=== PATIENT | male | born 1945 | race Caucasian/White ===

== ENCOUNTER 2017-11-12 11:38 | Inpatient (IN) | payer OTHER ==
[2017-11-12 14:48] VITALS: BMI 23.6
--- NOTE | 2017-11-12 16:14 | HP ---
CIWA Score - CIWA Score Nausea/Vomitin Muscle Tremors: 3 Anxiety: 4-Mod. Anxious/Guarded Agitation: 3 Paroxysmal Sweats: 3 Orientation: 2-Disoriented Date<2 days Tacttile Disturbances: 0-None Auditory Disturbances: 0-None Visual Disturbances: 0-None Headache: 0-None Present CIWA-Ar Total Score: 17 Admission ROS BHS - HPI Chief Complaint: Withdrawal sx. Allergies/Adverse Reactions: Allergies Allergy/AdvReac Type Severity Reaction Status Date / Time No Known Allergies Allergy Verified 11/12/17 16:02 History of Present Illness: 71 y/o man with a long hx. of alcoholism is admitted for detox. Pt. has been in previous detox, reports > 8 yrs. sober. UDS + for opiate, pt. denies opiate use, admits to smoking marihuana 2-3x/wk Exam Limitations: No Limitations - Ebola screening Have you traveled outside of the country in the last 21 days: No (N) Have you had contact with anyone from an Ebola affected area: No Have you been sick,other than usual withdrawal symptoms: No Do you have a fever: No - Review of Systems Constitutional: Diaphoresis EENT: reports: No Symptoms Reported Respiratory: reports: No Symptoms reported Cardiac: reports: No Symptoms Reported GI: reports: Nausea, Abdominal cramping Musculoskeletal: reports: No Symptoms Reported Integumentary: reports: Sweating Neuro: reports: Tremors Endocrine: reports: No Symptoms Reported Hematology: reports: No Symptoms Reported Psychiatric: reports: No Sypmtoms Reported Other Systems: Reviewed and Negative Patient History - Patient Medical History Hx Anemia: No Hx Asthma: No Hx Chronic Obstructive Pulmonary Disease (COPD): No Hx Cancer: No Hx Cardiac Disorders: No Hx Congestive Heart Failure: No Hx Hypertension: Yes Hx Hypercholesterolemia: Yes Hx Pacemaker: No HX Cerebrovascular Accident: No Hx Seizures: (may be 40 yrs. ago, not sure ) Hx Dementia: No Hx Diabetes: No Hx Gastrointestinal Disorders: Yes Hx Liver Disease: Yes Hx Genitourinary Disorders: No Hx Sexually Transmitted Disorders: No Hx Renal Disease (ESRD): No Hx Thyroid Disease: No Hx Human Immunodeficiency Virus (HIV): No Hx Hepatitis C: Yes ([place]) Hx Depression: Yes Hx Suicide Attempt: No Hx Bipolar Disorder: No Hx Schizophrenia: No - Patient Surgical History Past Surgical History: Yes Hx Cholecystectomy: Yes Other Surgical History: Hemorrhoids - PPD History Previous Implant?: Yes Documented Results: Negative w/o proof PPD to be Administered?: Yes - Smoking Cessation Smoking history: Former smoker (stopped 12 yrs. ago) Have you smoked in the past 12 months: No Initiated information on smoking cessation: No - Substance & Tx. History Hx Alcohol Use: Yes Hx Substance Use: Yes Substance Use Type: Alcohol, Marijuana Hx Substance Use Treatment: Yes (Detox) - Substances Abused Alcohol Route: Oral Frequency: Daily Amount used: Vodka 1 1/2 pint Age of first use: 26 Date of Last Use: 11/12/17 Family Disease History - Family Disease History Family Disease History: Diabetes: Sister (HTN), Heart Disease: Sister, Other: Father (Alcoholism, Cirrhosis) Admission Physical Exam [facility] - Vital Signs Vital Signs: Vital Signs - 24 hr 11/12/17 14:45 Temperature 97.7 F Pulse Rate 93 H Respiratory 18 Rate Blood Pressure 147/79 - Physical General Appearance: Yes: Alcohol on Breath, Tremorous, Irritable, Sweating, Anxious HEENTM: Yes: Within Normal Limits Respiratory: Yes: Chest Non-Tender, Lungs Clear, Normal Breath Sounds Neck: Yes: Supple Breast: Yes: Breast Exam Deferred Cardiology: Yes: Regular Rhythm, Regular Rate, S1, S2 Abdominal: Yes: Normal Bowel Sounds, Non Tender, Flat Genitourinary: Yes: Within Normal Limits Back: Yes: Within Normal Limits Musculoskeletal: Yes: Within Normal Limits Extremities: Yes: Tremors Neurological: Yes: Fully Oriented, Alert Integumentary: Yes: Diaphoresis Lymphatic: Yes: Within Normal Limits - Diagnostic (1) Alcohol dependence with uncomplicated withdrawal Current Visit: Yes Status: Acute (2) HTN (hypertension) Current Visit: Yes Status: Acute Qualifiers: Hypertension type: essential hypertension Qualified Code(s): I10 - Essential (primary) hypertension (3) Hypercholesterolemia Current Visit: Yes Status: Acute Cleared for Admission [facility] - Detox or Rehab [facility] Level of Care: Medically Managed Detox Regimen/Protocol: Librium [facility] Breath Alcohol Content Breath Alcohol Content: 0.211 Urine Drug Screen - Results Drug Screen Negative: No Urine Drug Screen Results: THC-Marijuana, OPI-Opiates, MTD-Methadone, OXY- Oxycodone
[2017-11-12] MEDS ORDERED: MAGNESIUM HYDROX 2400MG/30ML ORAL SUSPENSION 30 ML CUP PO PRN (16:30)
[2017-11-12] MEDS ORDERED: ACETAMINOPHEN 325 MG TABLET (FP) PO PRN (16:30)
[2017-11-12] MEDS ORDERED: MAG HYDROX/AL HYDROX/SIMETH 30 ML UNIT-DOSE CUP PO PRN (16:30)
[2017-11-12] MEDS ORDERED: MENTHOL/PHENOL 1 EACH UD MM PRN (16:30)
[2017-11-12] MEDS ORDERED: LOPERAMIDE HCL 2 MG CAPSULE PO PRN (16:30)
[2017-11-12] MEDS ORDERED: MAGNESIUM CITRATE 300 ML BOTTLE PO PRN (16:30)
[2017-11-12] MEDS ORDERED: IBUPROFEN 400 MG TABLET (FP) PO PRN (16:30)
[2017-11-12] MEDS ORDERED: chlordiazePOXIDE HCL 25 MG CAPSULE PO ONE (16:30)
[2017-11-12] MEDS ORDERED: P-EPHED 60MG/TRIPROLIDI 2.5MG TABLET PO PRN (16:30)
[2017-11-12] MEDS ORDERED: guaiFENesin/D-METHORPHAN HB 10 ML UNIT-DOSE CUPS PO PRN (16:30)
[2017-11-12] MEDS: chlordiazePOXIDE HCL 25 MG CAPSULE PO SCH ×2 (19:39→22:45)
[2017-11-12] MEDS: THIAMINE HCL 100 MG TABLET (FP) PO SCH (22:45)
[2017-11-12] MEDS: TAMSULOSIN HCL 0.4 MG CAP.ER.24H (FP) PO SCH (22:45)
[2017-11-12] MEDS: ATORVASTATIN CA 20 MG TABLET (FP) PO SCH (22:45)
[2017-11-13] MEDS: chlordiazePOXIDE HCL 25 MG CAPSULE PO PRN ×2 (01:43→13:35)
[2017-11-13] MEDS: chlordiazePOXIDE HCL 25 MG CAPSULE PO SCH ×4 (05:25→22:53)
[2017-11-13 10:27] LABS: HEMATOCRIT 36.7 % (35.4-49); HEMOGLOBIN 11.9 GM/dL (11.7-16.9); MCH 28.3 pg (25.7-33.7); MCHC 32.4 g/dl (32.0-35.9); MEAN CELL VOLUME 87.5 fl (80-96); PLATELET COUNT 275 K/MM3 (134-434); RBC 4.19 M/mm3 (4.00-5.60); RDW 13.5 % (11.9-15.9); WHITE BLOOD COUNT 4.2 K/mm3 (4.0-10.0)
[2017-11-13 10:38] LABS: CHLORIDE 104 mmol/L (98-107); POTASSIUM 4.2 mmol/L (3.5-5.1); SODIUM 141 mmol/L (136-145)
[2017-11-13 10:48] LABS: ALBUMIN 3.2 g/dl (3.4-5.0); ALK PHOS 122 U/L (45-117); ANION GAP 7 (8-16); BILIRUBIN,TOTAL 0.6 mg/dL (0.2-1.0); BLOOD UREA NITROGEN 33 mg/dL (7-18); CO2 30 mmol/L (21-32); CREATININE 1.8 mg/dL (0.7-1.3); GLUCOSE,RANDOM 105 mg/dL (74-106); SGOT/AST 63 U/L (15-37); SGPT/ALT 64 U/L (12-78); TOT PROT 6.3 g/dl (6.4-8.2)
--- NOTE | 2017-11-13 10:58 | CONSULT ---
[facility] Psychiatric Consult - Data Date of interview: 11/13/17 Admission source: [facility] [place] Identifying data: Mr Manning is a 71 years old , father of 3 children, retired as a social work case manager credit administrator on [employer], domiciled seeking detox treatment for alcohol Substance Abuse History: Reports history of alcohol use. He started drinking alcohol at age 26, consumes half a pint daily. Last drank on 11/12/17 Medical History: Significant for hypertension, hyperlipidemia, hepatis C, and history of alcohol-related sizure and surgery for hemorrhoids and Ballbladder. Psychiatric History: Reports that after he lost both parents(father when he was 10 & mother the following year) he practically raised himself and early in life started using drug and involved in criminal activities to support his habit. He was arrested multiple times on drug charges and served a total of 10 years in [facility]. Finally, he went to school, obtained an associate, BA and MA in social work. 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 He was diagnosed with Bipolar Disorder and started on Depakote wich he took for only 6 months. Told field underwriter that he believes that he was misdiagnosed and only took medication to satisfy HR requirement. About 1.5 year ago in 2016, he saw a psychiatrist due to marital issues(acknowledges infidelity) and was started on Zoloft. Later on Wellbutrin was added to counteract sexual side- effect (erectile dysfunction) of Zoloft. After 6 months, he stopped taking Zoloft since he was still experiencing sexual side-effects but continued to take Wellbutrin. Most recently, wellbutrin XL 300 mg po daily was prescribed by his primary care physician. Claims he stopped taking medication 2 weks ago. at present, reports feelimg anxious and experiencing difficulty to sleep Physical/Sexual Abuse/Trauma History: Denies history of verbal physical or sexual abuse as well as DV relationship Additional Comment: Reports history of multiple previous arrests including 5 felony convictions on charges of burglary. Reports serving approximately 10 years incarcerated Mental Status Exam - Mental Status Exam Alert and Oriented to: Time, Place, Person Cognitive Function: Fair Patient Appearance: Well Groomed Mood: Anxious Affect: Appropriate Patient Behavior: Cooperative Speech Pattern: Clear Voice Loudness: Normal Thought Process: Intact, Goal Oriented Thought Disorder: Not Present Hallucinations: Denies Suicidal Ideation: Denies Homicidal Ideation: Denies Insight/Judgement: Poor Sleep: Poorly Appetite: Fair Muscle strength/Tone: Normal Gait/Station: Normal Psychiatric Findings - Problem List ([place] 1, 2,3) (1) Impulse control disorder Current Visit: Yes Status: Chronic (2) Bipolar disorder Current Visit: Yes Status: Ruled-out (3) Substance induced mood disorder Current Visit: Yes Status: Acute (4) Substance-induced sleep disorder Current Visit: Yes Status: Acute (5) Alcohol dependence with uncomplicated withdrawal Current Visit: Yes Status: Acute (6) HTN (hypertension) Current Visit: Yes Status: Chronic Qualifiers: Hypertension type: essential hypertension Qualified Code(s): I10 - Essential (primary) hypertension (7) Hypercholesterolemia Current Visit: Yes Status: Chronic (8) Hepatitis C Current Visit: Yes Status: Chronic (9) 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 2) Start Ambien 10 mg po HS prn for insomia. 3) Continue inpatient deroxification
[2017-11-13] MEDS: ATENOLOL 25 MG TABLET (FP) PO SCH (11:07)
[2017-11-13] MEDS: PANTOPRAZOLE 40 MG TABLET (FP) PO SCH (11:07)
[2017-11-13] MEDS: PRENATAL VITAMINS W/ FOLIC ACID TABLET (FP) PO SCH (11:07)
[2017-11-13] MEDS: NIFEdipine E.R 60 MG TABLET (UD) PO SCH (11:07)
--- NOTE | 2017-11-13 11:29 | PN ---
S CIWA - CIWA Score Nausea/Vomitin-Mild Nausea/No Vomiting Muscle Tremors: 4-Moderate,w/Arms Extend Anxiety: 4-Mod. Anxious/Guarded Agitation: 3 Paroxysmal Sweats: 1-Minimal Palms Moist Orientation: 0-Oriented Tacttile Disturbances: 0-None Auditory Disturbances: 0-None Visual Disturbances: 0-None Headache: 0-None Present CIWA-Ar Total Score: 13 BHS Progress Note (SOAP) Subjective: tremor sweat anxiety Objective: 11/13/17 11:25 Vital Signs Temperature 98.2 F 11/13/17 10:23 Pulse Rate 124 H 11/13/17 10:23 Respiratory Rate 18 11/13/17 10:23 Blood Pressure 136/85 11/13/17 10:23 O2 Sat by Pulse Oximetry (%) Laboratory Last Values WBC 4.2 K/mm3 (4.0-10.0) 11/13/17 07:40 RBC 4.19 M/mm3 (4.00-5.60) 11/13/17 07:40 Hgb 11.9 GM/dL (11.7-16.9) 11/13/17 07:40 Hct 36.7 % (35.4-49) 11/13/17 07:40 MCV 87.5 fl (80-96) 11/13/17 07:40 MCH 28.3 pg (25.7-33.7) 11/13/17 07:40 MCHC 32.4 g/dl (32.0-35.9) 11/13/17 07:40 RDW 13.5 % (11.9-15.9) 11/13/17 07:40 Plt Count 275 K/MM3 (134-434) 11/13/17 07:40 MPV 8.0 fl (7.5-11.1) 11/13/17 07:40 Sodium 141 mmol/L (136-145) 11/13/17 07:40 Potassium 4.2 mmol/L (3.5-5.1) 11/13/17 07:40 Chloride 104 mmol/L (98-107) 11/13/17 07:40 Carbon Dioxide 30 mmol/L (21-32) 11/13/17 07:40 Anion Gap 7 (8-16) L 11/13/17 07:40 BUN 33 mg/dL (7-18) H 11/13/17 07:40 Creatinine 1.8 mg/dL (0.7-1.3) H 11/13/17 07:40 Creat Clearance w eGFR 37.27 (>60) 11/13/17 07:40 Random Glucose 105 mg/dL (74-106) 11/13/17 07:40 Calcium 8.0 mg/dL (8.5-10.1) L 11/13/17 07:40 Total Bilirubin 0.6 mg/dL (0.2-1.0) 11/13/17 07:40 AST 63 U/L (15-37) H 11/13/17 07:40 ALT 64 U/L (12-78) 11/13/17 07:40 Alkaline Phosphatase 122 U/L (45-117) H 11/13/17 07:40 Total Protein 6.3 g/dl (6.4-8.2) L 11/13/17 07:40 Albumin 3.2 g/dl (3.4-5.0) L 11/13/17 07:40 lab noted Assessment: 11/13/17 11:27 withdrawal sx Plan: continue detox
--- NOTE | 2017-11-13 12:51 | EKG ---
Test Reason : Blood Pressure : / mmHG Vent. Rate : 091 BPM Atrial Rate : 091 BPM P-R Int : 160 ms QRS Dur : 098 ms QT Int : 380 ms P-R-T Axes : 054 -23 060 degrees QTc Int : 467 ms NORMAL SINUS RHYTHM NONSPECIFIC T WAVE ABNORMALITY PROLONGED QT ABNORMAL ECG NO PREVIOUS ECGS AVAILABLE Confirmed by Darnell Bailey ([id number]) on 11/13/2017 12:51:14 PM Referred By: Confirmed By:Darnell Bailey
[2017-11-13 17:57] LABS: URINE APPEARANCE CLEAR; URINE BILIRUBIN NEGATIVE (NEGATIVE); URINE BLOOD 2+ (NEGATIVE); URINE COLOR YELLOW; URINE GLUCOSE (UA) NEGATIVE (NEGATIVE); URINE KETONE NEGATIVE (NEGATIVE); URINE LEUK ESTERASE NEGATIVE (NEGATIVE); URINE NITRITE NEGATIVE (NEGATIVE); URINE UROBILINOGEN NEGATIVE mg/dL (0.2-1.0)
[2017-11-13 18:03] LABS: URINE PROTEIN 2+ (NEGATIVE)
[2017-11-13 18:04] LABS: EPI CELLS RARE /HPF (FEW); URINE HYALINE CAST 1 /lpf; URINE MUCUS RARE
[2017-11-13] MEDS: ZOLPIDEM TARTRATE 5 MG TABLET PO PRN (22:53)
[2017-11-13] MEDS: TAMSULOSIN HCL 0.4 MG CAP.ER.24H (FP) PO SCH (22:53)
[2017-11-13] MEDS: ATORVASTATIN CA 20 MG TABLET (FP) PO SCH (22:53)
[2017-11-13] MEDS: THIAMINE HCL 100 MG TABLET (FP) PO SCH (22:53)
[2017-11-14] MEDS: chlordiazePOXIDE HCL 25 MG CAPSULE PO PRN ×3 (01:12→19:35)
[2017-11-14] MEDS: chlordiazePOXIDE HCL 25 MG CAPSULE PO SCH ×2 (05:47→10:58)
--- NOTE | 2017-11-14 08:52 | EKG ---
Test Reason : Blood Pressure : / mmHG Vent. Rate : 088 BPM Atrial Rate : 088 BPM P-R Int : 192 ms QRS Dur : 096 ms QT Int : 370 ms P-R-T Axes : 055 -21 044 degrees QTc Int : 447 ms NORMAL SINUS RHYTHM NONSPECIFIC ST ABNORMALITY ABNORMAL ECG WHEN COMPARED WITH ECG OF 12-NOV-2017 19:59, NO SIGNIFICANT CHANGE WAS FOUND Confirmed by Darnell Bailey ([id number]) on 11/14/2017 8:52:44 AM Referred By: Confirmed By:Darnell Bailey
[2017-11-14] MEDS: NIFEdipine E.R 60 MG TABLET (UD) PO SCH (10:57)
[2017-11-14] MEDS: PRENATAL VITAMINS W/ FOLIC ACID TABLET (FP) PO SCH (10:57)
[2017-11-14] MEDS: PANTOPRAZOLE 40 MG TABLET (FP) PO SCH (10:57)
[2017-11-14] MEDS: ATENOLOL 25 MG TABLET (FP) PO SCH (12:32)
--- NOTE | 2017-11-14 14:34 | PN ---
S CIWA - CIWA Score Nausea/Vomitin-Mild Nausea/No Vomiting Muscle Tremors: 3 Anxiety: 1-Mildly Anxious Agitation: 3 Paroxysmal Sweats: 1-Minimal Palms Moist Orientation: 0-Oriented Tacttile Disturbances: 0-None Auditory Disturbances: 1-Very Mild Visual Disturbances: 2-Mild Sensitivity Headache: 0-None Present CIWA-Ar Total Score: 12 BHS Progress Note (SOAP) Subjective: shakiness, anxious Objective: 11/14/17 14:32 Vital Signs - 24 hr 11/13/17 11/13/17 11/14/17 17:27 21:30 00:30 Temperature 97.7 F 97.5 F L Pulse Rate 96 H 97 H Respiratory 18 20 18 Rate Blood Pressure 129/94 126/82 11/14/17 11/14/17 11/14/17 03:30 06:24 09:21 Temperature 97.7 F 98.4 F Pulse Rate 98 H 105 H Respiratory 18 19 20 Rate Blood Pressure 133/82 118/78 Laboratory Tests 11/13/17 11/13/17 11/13/17 07:40 07:40 07:40 WBC 4.2 RBC 4.19 Hgb 11.9 Hct 36.7 MCV 87.5 MCH 28.3 MCHC 32.4 RDW 13.5 Plt Count 275 MPV 8.0 Sodium 141 Potassium 4.2 Chloride 104 Carbon Dioxide 30 Anion Gap 7 L BUN 33 H Creatinine 1.8 H Creat Clearance w eGFR 37.27 Random Glucose 105 Calcium 8.0 L Total Bilirubin 0.6 AST 63 H ALT 64 Alkaline Phosphatase 122 H Total Protein 6.3 L Albumin 3.2 L Urine Color Urine Appearance Urine pH Ur Specific [place] Urine Protein Urine Glucose (UA) Urine Ketones Urine Blood Urine Nitrite Urine Bilirubin Urine Urobilinogen Ur Leukocyte Esterase Urine WBC (Auto) Urine RBC (Auto) Ur Epithelial Cells Hyaline Casts Urine Mucus RPR Titer Nonreactive 11/13/17 16:00 WBC RBC Hgb Hct MCV MCH MCHC RDW Plt Count MPV Sodium Potassium Chloride Carbon Dioxide Anion Gap BUN Creatinine Creat Clearance w eGFR Random Glucose Calcium Total Bilirubin AST ALT Alkaline Phosphatase Total Protein Albumin Urine Color Yellow Urine Appearance Clear Urine pH 6.0 Ur Specific [place] 1.012 Urine Protein 2+ H Urine Glucose (UA) Negative Urine Ketones Negative Urine Blood 2+ H Urine Nitrite Negative Urine Bilirubin Negative Urine Urobilinogen Negative Ur Leukocyte Esterase Negative Urine WBC (Auto) 5 Urine RBC (Auto) 70 Ur Epithelial Cells Rare Hyaline Casts 1 Urine Mucus Rare RPR Titer Assessment: 11/14/17 14:33 etoh withdrawal Plan: cont current management labs repeated, discuseed to be fu as outpt
[2017-11-14] MEDS: chlordiazePOXIDE 5 MG CAPSULE PO SCH ×2 (17:50→22:04)
[2017-11-14] MEDS: ATORVASTATIN CA 20 MG TABLET (FP) PO SCH (22:04)
[2017-11-14] MEDS: TAMSULOSIN HCL 0.4 MG CAP.ER.24H (FP) PO SCH (22:04)
[2017-11-14] MEDS: THIAMINE HCL 100 MG TABLET (FP) PO SCH (22:04)
[2017-11-14] MEDS: ZOLPIDEM TARTRATE 5 MG TABLET PO PRN (22:04)
[2017-11-15] MEDS: hydrOXYzine PAMOATE 50 MG CAPSULE (FP) PO PRN ×2 (00:27→10:57)
[2017-11-15] MEDS: chlordiazePOXIDE 5 MG CAPSULE PO SCH ×2 (06:11→10:54)
[2017-11-15] MEDS: chlordiazePOXIDE HCL 25 MG CAPSULE PO PRN ×2 (07:34→12:28)
[2017-11-15 09:54] LABS: URINE APPEARANCE CLEAR; URINE BILIRUBIN NEGATIVE (NEGATIVE); URINE BLOOD NEGATIVE (NEGATIVE); URINE COLOR LTYELLOW; URINE GLUCOSE (UA) NEGATIVE (NEGATIVE); URINE KETONE NEGATIVE (NEGATIVE); URINE LEUK ESTERASE NEGATIVE (NEGATIVE); URINE NITRITE NEGATIVE (NEGATIVE); URINE UROBILINOGEN NEGATIVE mg/dL (0.2-1.0)
[2017-11-15] MEDS: NIFEdipine E.R 60 MG TABLET (UD) PO SCH (10:54)
[2017-11-15] MEDS: PANTOPRAZOLE 40 MG TABLET (FP) PO SCH (10:54)
[2017-11-15] MEDS: PRENATAL VITAMINS W/ FOLIC ACID TABLET (FP) PO SCH (10:54)
[2017-11-15] MEDS: ATENOLOL 25 MG TABLET (FP) PO SCH (10:55)
--- NOTE | 2017-11-15 11:13 | PN ---
BHS Progress Note (SOAP) Subjective: CO POOR SLEEP, GI UPSET,SOME SHAKING Objective: 11/15/17 11:11 Vital Signs - 24 hr 11/14/17 11/14/17 11/14/17 14:35 17:57 23:00 Temperature 97.9 F 97.7 F 97.0 F L Pulse Rate 97 H 87 84 Respiratory 18 20 18 Rate Blood Pressure 162/91 134/72 151/91 11/15/17 11/15/17 11/15/17 03:30 06:00 09:30 Temperature 97.7 F 97.9 F Pulse Rate 81 90 Respiratory 18 18 18 Rate Blood Pressure 127/84 144/83 Laboratory Tests 11/13/17 11/13/17 11/13/17 07:40 07:40 07:40 WBC 4.2 RBC 4.19 Hgb 11.9 Hct 36.7 MCV 87.5 MCH 28.3 MCHC 32.4 RDW 13.5 Plt Count 275 MPV 8.0 Sodium 141 Potassium 4.2 Chloride 104 Carbon Dioxide 30 Anion Gap 7 L BUN 33 H Creatinine 1.8 H Creat Clearance w eGFR 37.27 Random Glucose 105 Calcium 8.0 L Total Bilirubin 0.6 AST 63 H ALT 64 Alkaline Phosphatase 122 H Total Protein 6.3 L Albumin 3.2 L Urine Color Urine Appearance Urine pH Ur Specific [place] Urine Protein Urine Glucose (UA) Urine Ketones Urine Blood Urine Nitrite Urine Bilirubin Urine Urobilinogen Ur Leukocyte Esterase Urine WBC (Auto) Urine RBC (Auto) Ur Epithelial Cells Hyaline Casts Urine Mucus RPR Titer Nonreactive 11/13/17 16:00 WBC RBC Hgb Hct MCV MCH MCHC RDW Plt Count MPV Sodium Potassium Chloride Carbon Dioxide Anion Gap BUN Creatinine Creat Clearance w eGFR Random Glucose Calcium Total Bilirubin AST ALT Alkaline Phosphatase Total Protein Albumin Urine Color Yellow Urine Appearance Clear Urine pH 6.0 Ur Specific [place] 1.012 Urine Protein 2+ H Urine Glucose (UA) Negative Urine Ketones Negative Urine Blood 2+ H Urine Nitrite Negative Urine Bilirubin Negative Urine Urobilinogen Negative Ur Leukocyte Esterase Negative Urine WBC (Auto) 5 Urine RBC (Auto) 70 Ur Epithelial Cells Rare Hyaline Casts 1 Urine Mucus Rare RPR Titer REPEAT PENDING Assessment: 11/15/17 11:13 ONGOING WITHDRAWAL Plan: CONTINUE DETOX PROTOCOL
[2017-11-15 11:26] LABS: URINE PROTEIN 2+ (NEGATIVE)
[2017-11-15] MEDS: chlordiazePOXIDE HCL 10 MG CAPSULE PO SCH ×2 (17:42→22:07)
[2017-11-15] MEDS: ZOLPIDEM TARTRATE 5 MG TABLET PO PRN (22:06)
[2017-11-15] MEDS: THIAMINE HCL 100 MG TABLET (FP) PO SCH (22:07)
[2017-11-15] MEDS: TAMSULOSIN HCL 0.4 MG CAP.ER.24H (FP) PO SCH (22:07)
[2017-11-15] MEDS: ATORVASTATIN CA 20 MG TABLET (FP) PO SCH (22:07)
[2017-11-16] MEDS: chlordiazePOXIDE HCL 10 MG CAPSULE PO SCH (05:47)
[2017-11-16 06:36] VITALS: BP 123/77; PULSE 84; TEMP 98.1
--- NOTE | 2017-11-16 08:44 | DS ---
[facility] Detox Discharge Summary Admission Date: 11/12/17 Discharge Date: 11/16/17 - History Present History: Alcohol Dependence - Physical Exam Results Vital Signs: Vital Signs Temperature 98.1 F 11/16/17 06:00 Pulse Rate 84 11/16/17 06:00 Respiratory Rate 18 11/16/17 06:00 Blood Pressure 123/77 11/16/17 06:00 O2 Sat by Pulse Oximetry (%) - Treatment Hospital Course: Detox Protocol Followed, Detoxed Safely, Responded well, Discharged Condition Good - Medication Discharge Medications: Ambulatory Orders Atenolol [Tenormin -] 25 mg PO DAILY 11/12/17 Bupropion HCl [Wellbutrin Xl -] 300 mg PO DAILY 11/12/17 Nifedipine ER [Procardia Xl -] 60 mg PO DAILY 11/12/17 Pantoprazole Sodium [Protonix -] 40 mg PO DAILY 11/12/17 Simvastatin [Zocor -] 40 mg PO HS 11/12/17 Tamsulosin HCl [Flomax -] 0.4 mg PO HS 11/12/17 Bupropion HCl [Wellbutrin Xl -] 300 mg PO DAILY #30 tab.sr.[id number] 11/13/17 - Diagnosis (1) Alcohol dependence with uncomplicated withdrawal Current Visit: Yes Status: Chronic (2) Alcohol related seizure Current Visit: Yes Status: Chronic (3) HTN (hypertension) Current Visit: Yes Status: Chronic Qualifiers: Hypertension type: essential hypertension Qualified Code(s): I10 - Essential (primary) hypertension (4) Hepatitis C Current Visit: Yes Status: Chronic (5) Hypercholesterolemia Current Visit: Yes Status: Chronic (6) Impulse control disorder Current Visit: Yes Status: Chronic - AMA Did Patient Leave Against Medical Advice: No
[2017-11-16] MEDS: PANTOPRAZOLE 40 MG TABLET (FP) PO SCH (09:31)
[2017-11-16] MEDS: NIFEdipine E.R 60 MG TABLET (UD) PO SCH (09:31)
[2017-11-16] MEDS: PRENATAL VITAMINS W/ FOLIC ACID TABLET (FP) PO SCH (09:31)
== END 2017-11-16 09:37 | disposition home or self-care (01) | DRG 897 ==
LOC: YASAS 11:38 → Y6N 17:03
PROVIDERS: ADMIT Internal Medicine; ATTEND Internal Medicine
PROC: HZ2ZZZZ Detoxification Services for Substance Abuse Treatment (ICD-10-PCS; principal; 2017-11-12)
DX: F10.230 Alcohol dependence with withdrawal, uncomplicated (principal); F19.282 Other psychoactive substance dependence with psychoactive substance-induced sleep disorder; F31.9 Bipolar disorder, unspecified; F19.24 Other psychoactive substance dependence with psychoactive substance-induced mood disorder; I10 Essential (primary) hypertension; B18.2 Chronic viral hepatitis C; E78.5 Hyperlipidemia, unspecified; F63.89 Other impulse disorders; Z86.69 Personal history of other diseases of the nervous system and sense organs; Z87.891 Personal history of nicotine dependence
CPT/HCPCS: 36415; 80053; 81003; 81015; 85027; 86593; 93005; 93010